=== PATIENT | female | born 1950 | race Caucasian/White ===

== ENCOUNTER 2022-03-07 11:30 | Inpatient (IN) ==
[2022-03-30] MEDS ORDERED: Buffered Lidocaine 1% SYRIN 1 ml INTRADERM ONE (06:00)
[2022-03-30] MEDS ORDERED: Lactated Ringers 1000 ml BAG 1,000 ML IV SCH ×2 (06:00→17:00)
[2022-03-30] MEDS ORDERED: Midazolam 5 mg/5 ml VIAL 1 mg/ml 5 ml VIAL (5 mg) ONE (06:56)
[2022-03-30] MEDS ORDERED: fentaNYL 100 mcg/2 ml 50 MCG/ML VIAL ONE (06:56)
[2022-03-30] MEDS ORDERED: Phenylephrine IV 10 MG/ML 1 ml VIAL ONE (06:57)
[2022-03-30] MEDS ORDERED: Propofol 10 MG/ML 20 ML BTL ONE ×2 (06:57→16:15)
[2022-03-30] MEDS ORDERED: Dexamethasone IV 4 MG/ML VIAL 1 ml VIAL ONE (06:57)
[2022-03-30] MEDS ORDERED: Ondansetron 4 mg VIAL 2 MG/ML 2 ml VIAL ONE (06:57)
[2022-03-30] MEDS ORDERED: Acetaminophen IV 1 GM/100ML 1,000 MG/100 ML BAG IV ONE (07:06)
[2022-03-30] MEDS ORDERED: ceFAZolin 2 GM PREMIX 2 GM/50 ML BAG ONE ×2 (11:42→12:12)
[2022-03-30] MEDS ORDERED: ROPIVACAINE 5 MG/ML 30 ML BTL (0.5%) ONE ×2 (13:06→14:40)
[2022-03-30] MEDS ORDERED: fentaNYL 100 mcg/2 ml 50 MCG/ML VIAL IV PRN (14:43)
[2022-03-30] MEDS ORDERED: Naloxone 0.4 mg VIAL 0.4 mg/ml 1 ml VIAL IV PRN (14:43)
[2022-03-30] MEDS ORDERED: Ondansetron 4 mg VIAL 2 MG/ML 2 ml VIAL IV PRN ×2 (14:43→16:52)
[2022-03-30] MEDS ORDERED: PHENYLEPHRINE DRIP IVPREMIX 50 MG/250 ML BAG IV SCH (15:00)
[2022-03-30] MEDS ORDERED: Midazolam 2 mg/2 ml VIAL 1 mg/ml 2 ml VIAL (2 mg) ONE (15:09)
[2022-03-30] MEDS ORDERED: Magnesium Hydroxide LIQ 30 ML UDC PO PRN (16:52)
[2022-03-30] MEDS ORDERED: Morphine 2 MG/ML SYRINGE IV PRN (16:52)
[2022-03-30] MEDS ORDERED: Ondansetron ODT 4 mg TAB 4 MG TAB PO PRN (16:52)
[2022-03-30] MEDS ORDERED: Lactulose 30 ml UDC PO PRN (16:52)
[2022-03-30] MEDS: Magnesium Hydroxide LIQ 30 ML UDC PO SCH (20:58)
[2022-03-31] MEDS: ceFAZolin 1 GM ADVAN 1 GM in NS 0.9% 50 ML 50 ML IVPB SCH ×3 (00:24→15:27)
[2022-03-31 06:13] LABS: Hematocrit 31 % (35-47); Hemoglobin 10.5 g/dL (12.0-16.0); Mean Platelet Volume 8.3 fL (7.4-10.4); Platelet Count 112 10^3/uL (150-450)
[2022-03-31 06:47] LABS: Calcium 8.4 mg/dL (8.6-10.3); Creatinine, Serum 0.81 mg/dL (0.51-0.95); Potassium 4.2 mmol/L (3.5-5.0)
[2022-03-31] MEDS: Magnesium Hydroxide LIQ 30 ML UDC PO SCH (08:47)
[2022-03-31] MEDS ORDERED: NF: Olopatadine 0.2% (NF) 1 DROP BTL BOTH EYES SCH (09:00)
[2022-03-31] MEDS ORDERED: Vitamin THERAPEUTIC TAB PO SCH (09:00)
[2022-03-31 16:01] VITALS: BP 110/63
== END 2022-03-31 16:25 | disposition home or self-care (01) | DRG 470 ==
LOC: AA 03-30 11:24 → SSU 03-30 19:55
PROVIDERS: ADMIT Orthopaedic Surgery Adult Reconstructive Orthopaedic Surgery; ATTEND Orthopaedic Surgery Adult Reconstructive Orthopaedic Surgery